=== PATIENT | female | born 1995 | race Caucasian/White ===

== ENCOUNTER 2019-11-08 13:12 | Outpatient (REF) | payer BC, SELFPAY ==
--- NOTE | 2019-11-08 08:30 | PAPFT_PTH ---
PATIENT: Olimpia Graves LOC: [facility] U#:[id number] AGE/SX: 23/F ROOM: RE11/08/[address]: John Stephenson : 1995 BED: DIS: 11/08/2019 SPEC #: [id number] RECD: 11/11/19 13:11 STATUS: BONY REQ #: [id number] JIMBO: 11/08/19 08:[address]: John Stephenson DEPT: [facility] Cytology RECD BY: Mirtha Oneal Tissues: 1 - CX/ENDOCX FOR PAP SMEARS Procedures: PAP THIN PREP/[facility] Screening Comments: [id number] (CHLAMYDIA/GC)
[2019-11-12 14:25] LABS: Chlamydia Result Negative (Negative); GC Result Negative (Negative)
== END 2019-11-08 13:32 ==
LOC: NCHCN 13:12
PROVIDERS: PCP Family Medicine; Visit Provider Family Medicine
DX: Z00.00 Encounter for general adult medical examination without abnormal findings (principal); Z11.3 Encounter for screening for infections with a predominantly sexual mode of transmission; Z12.4 Encounter for screening for malignant neoplasm of cervix
CPT/HCPCS: 87491; 87591; 88142

== ENCOUNTER 2022-11-10 09:21 | Outpatient (REF) | payer OTHER, SELFPAY ==
--- NOTE | 2022-11-10 08:46 | PAPFT_PTH ---
PATIENT: Olimpia Graves LOC: [facility] U#:[id number] AGE/SX: 27/F ROOM: RE11/10/[address]: John Stephenson : 1995 BED: DIS: 11/10/2022 SPEC #: [id number] RECD: 11/10/22 17:41 STATUS: BONY REAlejandro #: [id number] JIMBO: 11/10/22 08:[address]: John Stephenson DEPT: [facility]ENDING SALE TO [facility] Cytology RECD BY: Mirtha Oneal Tissues: 1 - CX/ENDOCX FOR PAP SMEARS Procedures: PAP THIN PREP/[facility] Screening Comments: [id number] (CHLAMYDIA/GC)
[2022-11-11 14:18] LABS: Chlamydia Result Negative (Negative); GC Result Negative (Negative)
== END 2022-11-10 09:22 | disposition home or self-care (01) ==
LOC: NCHCN 09:21
PROVIDERS: PCP Family Medicine; Visit Provider Family Medicine
DX: Z12.4 Encounter for screening for malignant neoplasm of cervix (principal); Z11.3 Encounter for screening for infections with a predominantly sexual mode of transmission
CPT/HCPCS: 87491; 87591; 88142